=== PATIENT | male | born 1945 | race Caucasian/White ===

== ENCOUNTER 2016-12-22 15:40 | Emergency (ER) | payer SELFPAY ==
[~2016-12-22] VITALS: Ht 182.9 cm; Wt 93.0 kg
--- NOTE | 2016-12-22 16:05 | NUR ---
PT TO ER BED 01. C/O BLADDER PAIN, STATES UNABLE TO URINATE SINCE THIS AM. PT STATES HX OF ABDOMINAL HERNIA 5 YEARS AGO. 04/26 PAIN. HYPERTENSIVE CURRICULUM SUPERVISOR. AWAITING MD GONZALEZ.
[2016-12-22] MEDS ORDERED: LIDOCAINE 2% JEL UROJET 10 ML MM ONE ×2 (16:33→17:00)
[2016-12-22 16:55] LABS: APPEARANCE,URINE Cloudy (CLEAR); BILIRUBIN,URINE SMALL (NEGATIVE); BLOOD, URINE Large Ery/uL (NEGATIVE); KETONES,URINE Negative (NEGATIVE); LEUKOCYTE ESTERASE ,URINE Negative (NEGATIVE); NITRITE, URINE Negative (NEGATIVE); PH,URINE 5.5 (5.0-8.0); PROTEIN,URINE 100 mg/dl (NEGATIVE); UGLUCOSE Negative (NEGATIVE); UROBILINOGEN,URINE 0.2 EU/dL (0.2)
[2016-12-22 16:57] LABS: COLOR,URINE RED (YELLOW)
[2016-12-22 17:06] LABS: BASOPHILS % (AUTO) 0.2 % (0.0-2.0); EOSINOPHILS % (AUTO) 0.2 % (0.0-6.0); HEMATOCRIT 50 % (39-51); HEMOGLOBIN 16.9 g/dL (13.5-17.5); LYMPHOCYTES # (AUTO) 0.7 /CMM (0.8-4.8); LYMPHOCYTES % (AUTO) 5.7 % (20.0-44.0); MEAN CORPUSCULAR HEMOGLOBIN 29 PG (26.0-33.0); MEAN CORPUSCULAR HGB CONC 34 g/dl (31.0-36.0); MEAN CORPUSCULAR VOLUME 85 fL (80-96); MONOCYTES # (AUTO) 0.7 /CMM (0.1-1.30); MONOCYTES % (AUTO) 5.4 % (2.0-12.0); NEUTROPHILS # (AUTO) 11.3 /CMM (1.8-8.9); NEUTROPHILS % (AUTO) 88.5 % (43.0-81.0); PLATELET COUNT (AUTO) 160 /CMM (150-450); RED BLOOD CELL COUNT(AUTO) 5.89 MIL/uL (4.5-6.0); WHITE BLOOD COUNT (AUTO) 12.7 K/uL (4.3-11.0)
[2016-12-22 17:08] LABS: BACTERIA,URINE None seen /HPF (None Seen); RBC,URINE TOO NUMEROUS TO COUN /HPF (0-2); SQUAMOUS EPITHELIAL CELL,UR Few /HPF (None Seen)
[2016-12-22 17:26] LABS: CARBON DIOXIDE 25 mmol/L (21-32); CHLORIDE 102 mmol/L (98-107); CREATININE 1.3 mg/dL (0.6-1.3); GLUCOSE 113 mg/dL (74-106); POTASSIUM 4.4 mmol/L (3.5-5.1); SODIUM SERUM 133 mmol/L (136-145)
[2016-12-22 17:31] LABS: CALCIUM, SERUM 9.1 mg/dL (8.5-10.1); UREA NITROGEN, BLOOD 24 mg/dL (7-18)
--- NOTE | 2016-12-22 18:01 | NUR ---
Patient discharged to home in stable condition. Written and verbal after care instructions given. Patient verbalizes understanding of instruction. DC HOME WITH RODRÍGUEZ ATTACHED TO A RODRÍGUEZ BAG.
[2016-12-22 18:02] VITALS: BP 154/88
== END 2016-12-22 18:05 | disposition home or self-care (01) ==
LOC: ER 15:41
DX: R33.9 Retention of urine, unspecified (principal); I10 Essential (primary) hypertension; Z98.890 Other specified postprocedural states
CPT/HCPCS: 36415; 51702; 80048; 81001; 85025; 87086; 99284; A4606; J3490; Z7610; 81000-TC

== ENCOUNTER 2016-12-24 10:24 | Emergency (ER) | payer SELFPAY ==
[~2016-12-24] VITALS: Ht 182.9 cm; Wt 91.6 kg
--- NOTE | 2016-12-24 10:35 | NUR ---
AAOX3, CAME TO ER C/O A LEAK IN THE RODRÍGUEZ CATHETER. SKIN IS WARM AND DRY. RESP IS EVEN AND UNLABORED WITH NAD NOTED. AFEBRILE. DENIES ABDOMINAL PAIN. DENIES N/V. DR ELLIOTT AT BS FOR EVAL. DR ELLIOTT ORDERED TO REMOVE THE RODRÍGUEZ CATHETER. FC WAS REMOVED. PATIENT TOLERATED THE PROCEDURE.
--- NOTE | 2016-12-24 11:19 | NUR ---
PROVIDED COFFEE AT BS
--- NOTE | 2016-12-24 11:40 | NUR ---
PATIENT ABLE TO URINATE AT BS. DR HAIDER MADE AWARE. DR HAIDER AT BS FOR RE-EVAL.
--- NOTE | 2016-12-24 11:57 | NUR ---
Patient discharged to home in stable condition. Written and verbal after care instructions given. Patient verbalizes understanding of instruction.
[2016-12-24 11:58] VITALS: BP 145/85
== END 2016-12-24 11:58 | disposition home or self-care (01) ==
LOC: ER 10:25
DX: Z46.6 Encounter for fitting and adjustment of urinary device (principal); I10 Essential (primary) hypertension; K46.9 Unspecified abdominal hernia without obstruction or gangrene; Z98.890 Other specified postprocedural states
CPT/HCPCS: 99281; A4606; Z7502; Z7610

== ENCOUNTER 2019-11-19 04:27 | Emergency (ER) | payer MEDICARE, BC ==
[~2019-11-19] VITALS: Ht 182.9 cm; Wt 90.7 kg
[2019-11-19 04:27] VITALS: BP 150/92
--- NOTE | 2019-11-19 04:33 | NUR ---
PT CAME TO THE ED C/O "I AM UNABLE TO URINATE FOR THE PAST 2 DAYS". PT ELSO ENDORSES FLANK PAIN. PT AA/OX4, VSS, RESPIRATIONS EVEN AND UNLABORED ON RA W/ AND NOTED. PT CONNECTED TO THE MONITOR AND POX
[2019-11-19] MEDS ORDERED: LIDOCAINE 2% JEL UROJET 10 ML MM ONE (04:35)
--- NOTE | 2019-11-19 04:45 | NUR ---
URINE COLLECTED AND SENT TO LAB
--- NOTE | 2019-11-19 04:45 | NUR ---
URINE OUTPUT 900 ML NOTED. CLEAR, YELLOW AND NO ODOR NOTED.
[2019-11-19 04:51] LABS: APPEARANCE,URINE Clear (CLEAR); BILIRUBIN,URINE Negative (NEGATIVE); BLOOD, URINE Trace-lysed Ery/uL (NEGATIVE); COLOR,URINE Yellow (YELLOW); KETONES,URINE Negative (NEGATIVE); LEUKOCYTE ESTERASE ,URINE Negative (NEGATIVE); NITRITE, URINE Negative (NEGATIVE); PROTEIN,URINE Negative (NEGATIVE); UGLUCOSE Negative (NEGATIVE); UROBILINOGEN,URINE 0.2 EU/dL (0.2)
[2019-11-19 04:54] LABS: BASOPHILS # (AUTO) 0.1 /CMM (0.0-0.2); BASOPHILS % (AUTO) 0.5 % (0.0-2.0); HEMATOCRIT 46 % (39-51); HEMOGLOBIN 15.8 g/dL (13.5-17.5); LYMPHOCYTES # (AUTO) 1.4 /CMM (0.8-4.8); LYMPHOCYTES % (AUTO) 12.3 % (20.0-44.0); MEAN CORPUSCULAR HGB CONC 34 g/dl (31.0-36.0); MEAN CORPUSCULAR VOLUME 87 fL (80-96); MONOCYTES # (AUTO) 1.1 /CMM (0.1-1.30); NEUTROPHILS # (AUTO) 8.4 /CMM (1.8-8.9); NEUTROPHILS % (AUTO) 76.2 % (43.0-81.0); PLATELET COUNT (AUTO) 164 /CMM (150-450); RED BLOOD CELL COUNT(AUTO) 5.31 MIL/uL (4.5-6.0)
[2019-11-19] MEDS ORDERED: IV NS 0.9% 1,000 ML BAG IV ONE (05:00)
[2019-11-19 05:04] LABS: CALCIUM, SERUM 9.7 mg/dL (8.5-10.1); CARBON DIOXIDE 24 mmol/L (21-32); CHLORIDE 100 mmol/L (98-107); GLUCOSE 115 mg/dL (74-106); POTASSIUM 4.8 mmol/L (3.5-5.1); SODIUM SERUM 136 mmol/L (136-145); UREA NITROGEN, BLOOD 26 mg/dL (7-18)
[2019-11-19 05:14] LABS: BACTERIA,URINE None seen /HPF (None Seen); RBC,URINE 0-2 /HPF (0-2); SQUAMOUS EPITHELIAL CELL,UR Few /HPF (None Seen); WBC,URINE 0-2 /HPF (0-3)
--- NOTE | 2019-11-19 05:35 | NUR ---
Patient discharged to home in stable condition. Written and verbal after care instructions given. Patient verbalizes understanding of instruction. ambulatory with a steady gait
--- NOTE | 2019-11-19 05:35 | NUR ---
Yesenia talley in [facility] - 11/19/19 at 0535 by DAVONTE Patient discharged to home in stable condition. Written and verbal after care instructions given. Patient verbalizes understanding of instruction.(pt. name) ambulatory with a steady gait
== END 2019-11-19 05:36 | disposition home or self-care (01) ==
LOC: ER 04:30
DX: R33.9 Retention of urine, unspecified (principal); I10 Essential (primary) hypertension; Z98.890 Other specified postprocedural states
CPT/HCPCS: 36415; 51702; 80048; 81001; 85025; 99284; J3490; 81000-TC

== ENCOUNTER 2020-11-25 10:01 | Emergency (ER) | payer MEDICARE, BC ==
[~2020-11-25] VITALS: Ht 182.9 cm; Wt 87.1 kg
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
--- NOTE | 2020-11-25 10:08 | NUR ---
ERIK HAMMER AT BEDSIDE FOR WOUND CLEANING.
[2020-11-25] MEDS ORDERED: LIDOCAINE 1% INJ 50 ML MDV IJ ONE (10:14)
--- NOTE | 2020-11-25 10:30 | NUR ---
AT BEDSIDE FOR SUTURING.
[2020-11-25] MEDS ORDERED: TDAP [DIPH/PERTUSSIS/TET] 0.5 ML VIAL IM ONE ×2 (10:58→11:00)
[2020-11-25] MEDS ORDERED: BACITRACIN ZINC OINT PACKET 1 EA PACKET TP ONE (11:00)
[2020-11-25 11:06] VITALS: BP 127/76
--- NOTE | 2020-11-25 11:06 | NUR ---
Patient discharged to home in stable condition. Written and verbal after care instructions given. Patient verbalizes understanding of instruction.
== END 2020-11-25 11:06 | disposition home or self-care (01) ==
LOC: ER 10:01
DX: S51.812A Laceration without foreign body of left forearm, initial encounter (principal); I10 Essential (primary) hypertension; Z87.442 Personal history of urinary calculi; Z98.890 Other specified postprocedural states; W26.8XXA Contact with other sharp object(s), not elsewhere classified, initial encounter; Y93.89 Activity, other specified; Y92.89 Other specified places as the place of occurrence of the external cause; Y99.8 Other external cause status
CPT/HCPCS: 12002; 90471; 90715; 99283; A6403; J3490

== ENCOUNTER 2021-06-10 18:31 | Emergency (ER) | payer MEDICARE, BC ==
[~2021-06-10] VITALS: Ht 182.9 cm; Wt 93.9 kg
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
--- NOTE | 2021-06-10 18:42 | NUR ---
LABS COLLECTED AND SENT.
--- NOTE | 2021-06-10 19:02 | NUR ---
PT TAKEN TO CT VIA [facility]
--- NOTE | 2021-06-10 19:05 | NUR ---
REC'D REPORT FROM JABARI MEYER FOR MARGARITA
[2021-06-10 19:12] LABS: BASOPHILS # (AUTO) 0.1 K/uL (0.0-0.2); BASOPHILS % (AUTO) 0.9 % (0.0-2.0); EOSINOPHILS % (AUTO) 1.5 % (0.0-6.0); HEMATOCRIT 46 % (39-51); HEMOGLOBIN 15.3 g/dL (13.5-17.5); LYMPHOCYTES # (AUTO) 1.9 K/uL (0.8-4.8); LYMPHOCYTES % (AUTO) 24.3 % (20.0-44.0); MEAN CORPUSCULAR HGB CONC 33 g/dl (31.0-36.0); MEAN CORPUSCULAR VOLUME 88 fL (80-96); MONOCYTES # (AUTO) 0.7 K/uL (0.1-1.30); MONOCYTES % (AUTO) 8.7 % (2.0-12.0); NEUTROPHILS # (AUTO) 5.1 K/uL (1.8-8.9); NEUTROPHILS % (AUTO) 64.6 % (43.0-81.0); PLATELET COUNT (AUTO) 188 K/uL (150-450); RED BLOOD CELL COUNT(AUTO) 5.22 MIL/uL (4.5-6.0); WHITE BLOOD COUNT (AUTO) 7.8 K/uL (4.3-11.0)
[2021-06-10 20:06] LABS: ALANINE AMINOTRANSFERASE 29 U/L (12-78); ALBUMIN 4.1 g/dL (3.4-5.0); ALKALINE PHOSPHATASE 59 U/L (46-116); ASPARTATE AMINOTRANSFERASE 23 U/L (15-37); BILIRUBIN,DIRECT 0.1 mg/dL (0.0-0.2); BILIRUBIN,TOTAL 0.5 mg/dL (0.2-1.0); CALCIUM, SERUM 8.9 mg/dL (8.5-10.1); CARBON DIOXIDE 24 mmol/L (21-32); CHLORIDE 104 mmol/L (98-107); CREATININE 1.5 mg/dL (0.6-1.3); GLUCOSE 94 mg/dL (74-106); POTASSIUM 3.8 mmol/L (3.5-5.1); SODIUM SERUM 140 mmol/L (136-145); TOTAL PROTEIN, SERUM 7.4 g/dL (6.4-8.2); UREA NITROGEN, BLOOD 32 mg/dL (7-18)
--- NOTE | 2021-06-10 20:20 | NUR ---
Patient discharged to home in stable condition. Written and verbal after care instructions given. Patient verbalizes understanding of instruction. IV removed. Catheter intact and site benign. Pressure and 4x4 applied to site. No bleeding noted. PT ambulatory with a steady gait
[2021-06-10 20:25] VITALS: BP 138/84
== END 2021-06-10 20:20 | disposition home or self-care (01) ==
LOC: ER 18:41
DX: R55 Syncope and collapse (principal); I10 Essential (primary) hypertension; Z98.890 Other specified postprocedural states; V43.52XA Car driver injured in collision with other type car in traffic accident, initial encounter; Y93.89 Activity, other specified; Y92.89 Other specified places as the place of occurrence of the external cause; Y99.8 Other external cause status
CPT/HCPCS: 36415; 70450-TC; 71045-TC; 80048-TC; 80076-TC; 84484-TC; 85025-TC

== ENCOUNTER 2021-09-12 08:39 | Emergency (ER) | payer MEDICARE, BC ==
[~2021-09-12] VITALS: Ht 182.9 cm; Wt 89.8 kg
--- NOTE | 2021-09-12 08:43 | NUR ---
TO ER BED 1, MARA C/O HIGH BLOOD PRESSURE SINCE 6AM. "TOOK 2ND DOSE OF METOPROLOL", CHEST FEELS HEAVY AND C/O SLIGHT HEADACHE P/S 10/25, AAOX3, BREATHING EVEN AND NON LABORED, CONNECTED TO MONITOR, CHANGED INTO A GOWN
[2021-09-12] MEDS ORDERED: NITROGLYCERIN PACKET 1 GM PACKET TD ONE (09:00)
[2021-09-12] MEDS ORDERED: NITROGLYCERIN PACKET 1 GM PACKET ONE (09:04)
--- NOTE | 2021-09-12 09:16 | NUR ---
BUTTON SPINDLER AT BEDSIDE
--- NOTE | 2021-09-12 09:18 | NUR ---
TAKEN TO CT
[2021-09-12] MEDS ORDERED: FINA5TAB11 PO (09:28)
[2021-09-12] MEDS ORDERED: TAMS-12 PO (09:28)
[2021-09-12] MEDS ORDERED: METO-357 PO (09:28)
[2021-09-12] MEDS ORDERED: INDO50CA91 PO (09:28)
[2021-09-12] MEDS ORDERED: BENA10TA74 PO (09:28)
--- NOTE | 2021-09-12 09:28 | NUR ---
PT RETURNED FROM CT VIA [facility]
[2021-09-12 09:31] LABS: BASOPHILS % (AUTO) 0.9 % (0.0-2.0); EOSINOPHILS % (AUTO) 0.7 % (0.0-6.0); HEMATOCRIT 48 % (39-51); HEMOGLOBIN 16.1 g/dL (13.5-17.5); LYMPHOCYTES # (AUTO) 1.1 K/uL (0.8-4.8); LYMPHOCYTES % (AUTO) 21.9 % (20.0-44.0); MEAN CORPUSCULAR HGB CONC 34 g/dl (31.0-36.0); MEAN CORPUSCULAR VOLUME 86 fL (80-96); MONOCYTES # (AUTO) 0.4 K/uL (0.1-1.30); MONOCYTES % (AUTO) 8.5 % (2.0-12.0); NEUTROPHILS # (AUTO) 3.6 K/uL (1.8-8.9); PLATELET COUNT (AUTO) 160 K/uL (150-450); RED BLOOD CELL COUNT(AUTO) 5.53 MIL/uL (4.5-6.0); WHITE BLOOD COUNT (AUTO) 5.2 K/uL (4.3-11.0)
[2021-09-12 10:39] LABS: ALANINE AMINOTRANSFERASE 32 U/L (12-78); ALBUMIN 3.8 g/dL (3.4-5.0); ALKALINE PHOSPHATASE 58 U/L (46-116); BILIRUBIN,DIRECT 0.1 mg/dL (0.0-0.2); BILIRUBIN,TOTAL 0.4 mg/dL (0.2-1.0); TOTAL PROTEIN, SERUM 7.2 g/dL (6.4-8.2)
[2021-09-12 10:56] LABS: ASPARTATE AMINOTRANSFERASE 22 U/L (15-37)
[2021-09-12 12:48] LABS: CALCIUM, SERUM 9.5 mg/dL (8.5-10.1); CARBON DIOXIDE 24 mmol/L (21-32); CHLORIDE 104 mmol/L (98-107); CREATININE 1.4 mg/dL (0.6-1.3); GLUCOSE 129 mg/dL (74-106); POTASSIUM 4.5 mmol/L (3.5-5.1); SODIUM SERUM 140 mmol/L (136-145); UREA NITROGEN, BLOOD 26 mg/dL (7-18)
[2021-09-12] MEDS ORDERED: AMLO-212 PO (12:53)
--- NOTE | 2021-09-12 13:08 | NUR ---
IV removed. Catheter intact and site benign. Pressure and 4x4 applied to site. No bleeding noted.Patient discharged to home in stable condition. Written and verbal after care instructions given. Patient verbalizes understanding of instruction.
[2021-09-12 13:32] VITALS: BP 146/89
== END 2021-09-12 13:33 | disposition home or self-care (01) ==
LOC: ER 08:40
DX: I10 Essential (primary) hypertension (principal); Z98.890 Other specified postprocedural states; Z79.899 Other long term (current) drug therapy
CPT/HCPCS: 36415; 70450-TC; 71045-TC; 80048-TC; 80076-TC; 83880; 84484-TC; 85025-TC

== ENCOUNTER 2022-03-08 18:35 | Emergency (ER) | payer MEDICARE, BC ==
[~2022-03-08] VITALS: Ht 182.9 cm; Wt 91.6 kg
[~2022-03-08 18:35] MED LIST: AMLO-212 PO; BENA10TA74 PO; FINA5TAB11 PO; INDO50CA91 PO; METO-357 PO; TAMS-12 PO
--- NOTE | 2022-03-08 18:35 | NUR ---
RECEIVED PT 76 YRS OLD MALE CAME FROM HOME WALKING IN C/O ELEVATED BP AND C/O H MILD HEAdeck and dizzness
[2022-03-08] MEDS ORDERED: BENAZEPRIL HCL 10 MG TABLET PO ONE (19:00)
[2022-03-08] MEDS ORDERED: BENA40TA8 PO (19:00)
--- NOTE | 2022-03-08 19:00 | NUR ---
BP 202/105MMHG LOTENSIN 20MG PO WAS GIVEN
[2022-03-08] MEDS ORDERED: BENAZEPRIL HCL 10 MG TABLET ONE (19:07)
--- NOTE | 2022-03-08 19:36 | NUR ---
HAND OFF CHAD BARBOZA
--- NOTE | 2022-03-08 19:58 | NUR ---
Patient discharged to home in stable condition. Written and verbal after care instructions given. Patient verbalizes understanding of instruction.
[2022-03-08 21:36] VITALS: BP 176/85
== END 2022-03-08 19:58 | disposition home or self-care (01) ==
LOC: ER 18:40
DX: I10 Essential (primary) hypertension (principal); Z87.442 Personal history of urinary calculi

== ENCOUNTER 2023-04-10 04:17 | Emergency (ER) | payer MEDICARE, BC ==
[~2023-04-10] VITALS: Ht 182.9 cm; Wt 92.1 kg
[~2023-04-10 04:17] MED LIST changes: +BENA40TA8 PO
[2023-04-10] MEDS ORDERED: IV NS 0.9% 2,000 ML IV ONE (04:30)
[2023-04-10 04:42] LABS: BASOPHILS % (AUTO) 0.4 % (0.0-2.0); EOSINOPHILS % (AUTO) 0.2 % (0.0-6.0); HEMATOCRIT 39 % (39-51); HEMOGLOBIN 13.1 g/dL (13.5-17.5); LYMPHOCYTES # (AUTO) 1.1 K/uL (0.8-4.8); LYMPHOCYTES % (AUTO) 8.5 % (20.0-44.0); MEAN CORPUSCULAR HEMOGLOBIN 29 PG (26.0-33.0); MEAN CORPUSCULAR HGB CONC 33 g/dl (31.0-36.0); MEAN CORPUSCULAR VOLUME 87 fL (80-96); MONOCYTES # (AUTO) 0.7 K/uL (0.1-1.30); MONOCYTES % (AUTO) 5.1 % (2.0-12.0); NEUTROPHILS # (AUTO) 11.2 K/uL (1.8-8.9); NEUTROPHILS % (AUTO) 85.8 % (43.0-81.0); PLATELET COUNT (AUTO) 159 K/uL (150-450); RED BLOOD CELL COUNT(AUTO) 4.52 MIL/uL (4.5-6.0); RED CELL DISTRIBUTION WIDTH 14.3 % (11.5-15.0)
[2023-04-10 04:53] LABS: CALCIUM, SERUM 8.7 mg/dL (8.5-10.1); CARBON DIOXIDE 24 mmol/L (21-32); CHLORIDE 106 mmol/L (98-107); CREATININE 1.3 mg/dL (0.6-1.3); GLUCOSE 155 mg/dL (74-106); POTASSIUM 4.8 mmol/L (3.5-5.1); SODIUM SERUM 139 mmol/L (136-145); UREA NITROGEN, BLOOD 66 mg/dL (7-18)
[2023-04-10 04:58] LABS: ALANINE AMINOTRANSFERASE 24 U/L (12-78); ALKALINE PHOSPHATASE 48 U/L (46-116); ASPARTATE AMINOTRANSFERASE 18 U/L (15-37); BILIRUBIN,DIRECT 0.1 mg/dL (0.0-0.2); BILIRUBIN,TOTAL 0.4 mg/dL (0.2-1.0); TOTAL PROTEIN, SERUM 5.7 g/dL (6.4-8.2)
[2023-04-10 05:00] LABS: LACTIC ACID 1.8 mmol/L (0.4-2.0)
[2023-04-10 08:07] VITALS: BP 101/74; TEMP 97.7; O2SAT 98
== END 2023-04-10 08:08 | disposition home or self-care (01) ==
LOC: ER 04:19
DX: R07.9 Chest pain, unspecified (principal); I10 Essential (primary) hypertension; Z87.442 Personal history of urinary calculi
CPT/HCPCS: 99285; 96360; 71045; 93005; 85025; 80048; 83605; 80076; 83735; 36415; 84484 ×2; 83880; J7030

== ENCOUNTER 2023-07-10 07:50 | Emergency (ER) | payer MEDICARE, BC ==
[~2023-07-10] VITALS: Ht 182.9 cm; Wt 87.1 kg
[2023-07-10] MEDS ORDERED: NITROGLYCERIN 0.4 MG/TAB BOTTLE ONE (08:28)
[2023-07-10] MEDS ORDERED: NITROGLYCERIN 0.4 MG/TAB BOTTLE SL ONE (08:30)
[2023-07-10 08:32] LABS: BASOPHILS % (AUTO) 0.7 % (0.0-2.0); EOSINOPHILS % (AUTO) 0.8 % (0.0-6.0); HEMATOCRIT 46 % (39-51); HEMOGLOBIN 15.3 g/dL (13.5-17.5); LYMPHOCYTES # (AUTO) 1.2 K/uL (0.8-4.8); LYMPHOCYTES % (AUTO) 20.5 % (20.0-44.0); MEAN CORPUSCULAR HEMOGLOBIN 28 PG (26.0-33.0); MEAN CORPUSCULAR HGB CONC 33 g/dl (31.0-36.0); MEAN CORPUSCULAR VOLUME 85 fL (80-96); MONOCYTES # (AUTO) 0.5 K/uL (0.1-1.30); MONOCYTES % (AUTO) 7.7 % (2.0-12.0); NEUTROPHILS # (AUTO) 4.2 K/uL (1.8-8.9); NEUTROPHILS % (AUTO) 70.3 % (43.0-81.0); PLATELET COUNT (AUTO) 150 K/uL (150-450); RED BLOOD CELL COUNT(AUTO) 5.41 MIL/uL (4.5-6.0); RED CELL DISTRIBUTION WIDTH 14.4 % (11.5-15.0)
[2023-07-10 08:43] LABS: CALCIUM, SERUM 9.5 mg/dL (8.5-10.1); CARBON DIOXIDE 24 mmol/L (21-32); CHLORIDE 102 mmol/L (98-107); CREATININE 1.4 mg/dL (0.6-1.3); GLUCOSE 121 mg/dL (74-106); POTASSIUM 4.1 mmol/L (3.5-5.1); SODIUM SERUM 134 mmol/L (136-145); UREA NITROGEN, BLOOD 29 mg/dL (7-18)
[2023-07-10 08:47] LABS: INR 1.05 (0.91-1.10); PARTIAL THROMBOPLASTIN TIME 31.1 SEC (24.3-34.3); PROTHROMBIN TIME 11.1 SECS (9.2-11.1)
[2023-07-10 08:55] LABS: ALANINE AMINOTRANSFERASE 24 U/L (12-78); ALBUMIN 3.7 g/dL (3.4-5.0); ALKALINE PHOSPHATASE 64 U/L (46-116); ASPARTATE AMINOTRANSFERASE 18 U/L (15-37); BILIRUBIN,DIRECT 0.1 mg/dL (0.0-0.2); BILIRUBIN,TOTAL 0.5 mg/dL (0.2-1.0); NT-PRO BNP 1566 pg/mL (0-125); TOTAL PROTEIN, SERUM 7.3 g/dL (6.4-8.2)
[2023-07-10 11:41] VITALS: BP 129/72; TEMP 98.8; O2SAT 100
== END 2023-07-10 11:41 | disposition home or self-care (01) ==
LOC: ER 07:56
DX: R07.89 Other chest pain (principal); I10 Essential (primary) hypertension; Z98.890 Other specified postprocedural states; Z79.899 Other long term (current) drug therapy
CPT/HCPCS: 36415; 71045-TC; 80048-TC; 80076-TC; 83690-TC; 83880; 84484-TC; 85025-TC; 85730-TC

== ENCOUNTER 2023-07-12 04:18 | Emergency (ER) | payer MEDICARE, BC ==
[~2023-07-12] VITALS: Ht 182.9 cm; Wt 89.8 kg
[~2023-07-12 04:18] MED LIST changes: -AMLO-212 PO; -BENA40TA8 PO; -INDO50CA91 PO
[2023-07-12] MEDS ORDERED: hydrALAZINE HCL IV 20 MG VIAL IV ONE (05:00)
[2023-07-12] MEDS ORDERED: MORPHINE SULFATE INJ 2 MG/ML DISP.SYRIN IV ONE (05:00)
[2023-07-12] MEDS ORDERED: MORPHINE SULFATE INJ 2 MG/ML DISP.SYRIN ONE (05:01)
[2023-07-12] MEDS ORDERED: hydrALAZINE HCL IV 20 MG VIAL ONE (05:01)
[2023-07-12 05:45] LABS: BASOPHILS % (AUTO) 0.7 % (0.0-2.0); EOSINOPHILS # (AUTO) 0.1 K/uL (0.0-0.7); HEMATOCRIT 44 % (39-51); HEMOGLOBIN 14.7 g/dL (13.5-17.5); LYMPHOCYTES # (AUTO) 1.4 K/uL (0.8-4.8); LYMPHOCYTES % (AUTO) 22.3 % (20.0-44.0); MEAN CORPUSCULAR HEMOGLOBIN 28 PG (26.0-33.0); MEAN CORPUSCULAR HGB CONC 33 g/dl (31.0-36.0); MEAN CORPUSCULAR VOLUME 85 fL (80-96); MONOCYTES # (AUTO) 0.6 K/uL (0.1-1.30); MONOCYTES % (AUTO) 8.9 % (2.0-12.0); NEUTROPHILS # (AUTO) 4.3 K/uL (1.8-8.9); NEUTROPHILS % (AUTO) 66.1 % (43.0-81.0); PLATELET COUNT (AUTO) 155 K/uL (150-450); RED BLOOD CELL COUNT(AUTO) 5.19 MIL/uL (4.5-6.0); RED CELL DISTRIBUTION WIDTH 14.6 % (11.5-15.0); WHITE BLOOD COUNT (AUTO) 6.5 K/uL (4.3-11.0)
[2023-07-12 05:59] LABS: INR 1.03 (0.91-1.10); PARTIAL THROMBOPLASTIN TIME 31.8 SEC (24.3-34.3); PROTHROMBIN TIME 10.9 SECS (9.2-11.1)
[2023-07-12 06:11] LABS: ALBUMIN 3.6 g/dL (3.4-5.0); BILIRUBIN,DIRECT 0.1 mg/dL (0.0-0.2); BILIRUBIN,TOTAL 0.4 mg/dL (0.2-1.0); CALCIUM, SERUM 9.3 mg/dL (8.5-10.1); CREATININE 1.1 mg/dL (0.6-1.3); POTASSIUM 3.9 mmol/L (3.5-5.1); TOTAL PROTEIN, SERUM 6.9 g/dL (6.4-8.2)
[2023-07-12 06:27] LABS: APPEARANCE,URINE CLEAR (CLEAR); BILIRUBIN,URINE NEGATIVE (NEGATIVE); BLOOD, URINE NEGATIVE Ery/uL (NEGATIVE); COLOR,URINE YELLOW (YELLOW); KETONES,URINE NEGATIVE (NEGATIVE); LEUKOCYTE ESTERASE ,URINE NEGATIVE (NEGATIVE); NITRITE, URINE NEGATIVE (NEGATIVE); PROTEIN,URINE NEGATIVE (NEGATIVE); UGLUCOSE NEGATIVE (NEGATIVE); UROBILINOGEN,URINE 0.2 EU/dL (0.2)
[2023-07-12] MEDS ORDERED: LABETALOL HCL IV 100MG VIAL ONE (07:55)
[2023-07-12] MEDS ORDERED: LABETALOL HCL IV 100MG VIAL IV ONE (08:00)
[2023-07-12 08:30] VITALS: BP 144/83; TEMP 96.3; O2SAT 98
== END 2023-07-12 08:31 | disposition home or self-care (01) ==
LOC: ER 04:19
DX: I16.0 Hypertensive urgency (principal); I10 Essential (primary) hypertension; Z87.442 Personal history of urinary calculi
CPT/HCPCS: 99285; 96374; 70450; 71045; 96375; 93005; 85025; 80048; 80076; 81003; 36415; 84484; 85730; J0360; J3490; J2270